=== PATIENT | female | born 1965 | race Caucasian/White ===

== ENCOUNTER → 2016-05-04 | Outpatient (CLI) | payer BC | LOC: RAD 09:00 | PROVIDERS: ATTEND Specialist | DX: R19.01 Right upper quadrant abdominal swelling, mass and lump (principal); K44.9 Diaphragmatic hernia without obstruction or gangrene | CPT/HCPCS: 74250 ==

== ENCOUNTER 2017-01-17 08:32 | Day surgery (SDC) | payer BC, OTHER ==
--- NOTE | 2017-01-12 11:18 | HISTORY AND PHYSICAL E ---
History and Physical NAME: YONATHAN AUGUST : 1965 AGE: 51Y ADMITTED: 01/17/2017 ROOM: CHIEF COMPLAINT: Patient admitted for colon screening. HISTORY: I saw the patient in 2014 for dysphagia. PAST SURGICAL HISTORY: 1. Hysterectomy. 2. Bilateral breast biopsy. ALLERGIES: Negative. SOCIAL HISTORY: . Does not smoke, she quit. She does not drink. FAMILY HISTORY: Father is alive with heart disease. Mom is alive. REVIEW OF SYSTEMS: RESPIRATORY: Asthma. COPD. She uses inhaler as needed. CARDIAC: Hypertension. ENDOCRINE: Negative. GASTROINTESTINAL: Reflux. Colon screening. ONCOLOGY/HEMATOLOGY: Negative. MUSCULOSKELETAL: Arthritis. PHYSICAL EXAMINATION: GENERAL: Pleasant, alert, oriented. In no acute distress. VITAL SIGNS: Blood pressure 110/70, pulse 80, respirations 18, temp is 98. HEAD, EYES, EARS, NOSE, THROAT: Normal. NECK: Supple. LUNGS: Clear. ABDOMEN: Soft. NEUROLOGIC: Negative. CONCLUSION: Colon screening. PLAN: Colonoscopy. Patient did have colon in 2014. It shows anemia. Patient does have history of colonoscopy in December 2014 showing polyps. Now patient for colon screening. The patient did have colonoscopy in 2014. It showed colon polyp, 4 mm polyp. These polyps were hyperplastic polyps. Sigmoid polypectomy. Upper scope shows food retained in the stomach consistent with gastroparesis. Patient's gastric emptying study was normal. DICTATING PHYSICIAN: SHABNAM HERNANDEZ M.D. [id number] Y#: [id number] ID: [id number] JOB#: [id number] ACCT: [id number] cc:ABENA SPEARS M.D., MAHMOUD M.D. >
[~2017-01-17 08:32] MED LIST: EPINEPHRINE INJ 1 MG/10 ML DISP.SYRIN ONE; FLUMAZENIL INJ 0.5 MG/5 ML VIAL ONE; GLUCAGON,HUMAN RECOMB 1 MG INJ ONE; GLYCOPYRROLATE INJ 0.4 MG/2 ML VIAL ONE; NALOXONE HCL INJ/PF 0.4 MG/1 ML SDV ONE
[2017-01-17] MEDS: MIDAZOLAM 2 MG/2 ML INJ ONE ×2 (09:44→09:53)
[2017-01-17] MEDS: FENTANYL CITRATE INJ/PF 100 MCG/2 ML AMPUL ONE ×3 (09:46→09:50)
[2017-01-17] MEDS ORDERED: ONDANSETRON HCL INJ/PF 4 MG/2 ML SDV ONE (10:35)
[2017-01-17 11:02] VITALS: BP 118/73
[2017-01-17 11:07] LABS: ABSOLUTE EOSINOPHILS # (AUTO) 0.2 10^3/uL (0.0-0.6); ABSOLUTE LYMPHOCYTES (AUTO) 1.8 10^3/uL (0.5-4.7); ABSOLUTE MONOCYTES (AUTO) 0.8 10^3/uL (0.1-1.4); BASOPHILS % (AUTO) 0.2 % (0-2); EOSINOPHILS % (AUTO) 1.9 % (0-6); HEMATOCRIT 36.1 % (36.0-47.0); HEMOGLOBIN 12.6 g/dL (12.0-15.5); HGB HCT DIFFERENCE 1.7; LYMPHOCYTES % (AUTO) 18.6 % (13-45); MEAN CORPUSCULAR HEMOGLOBIN 29.6 pg (27.0-33.4); MEAN CORPUSCULAR HGB CONC 34.8 g/dL (32.0-36.0); MEAN CORPUSCULAR VOLUME 85 fl (80-97); MONOCYTES % (AUTO) 7.9 % (3-13); RED BLOOD COUNT 4.24 10^6/uL (3.72-5.28); RED CELL DISTRIBUTION WIDTH 13.2 % (11.5-14.0); SEGMENTED NEUTROPHILS % (AUTO) 71.4 % (42-78); WHITE BLOOD COUNT 9.8 10^3/uL (4.0-10.5)
--- NOTE | 2017-01-17 13:47 | DISCHARGE SUMMARY E ---
Discharge Summary NAME: YONATHAN AUGUST : 1965 AGE: 51Y ADMITTED: 01/17/2017 DISCHARGED: 01/17/2017 SUMMARY: Patient is a 51-year-old female who underwent colon screening today that shows a 2 to 3 mm polyp in sigmoid, resected, and small anal polyp at the anal verge too close to the sphincter and the anal area. Consideration for surgical consultation and possible surgical resection of small anal verge polyp versus hemorrhoid, benign, no evidence of malignancy. DISCHARGE PLAN: Baseline CBC, soft diet, surgical consult in the next few weeks. DICTATING PHYSICIAN: SHABNAM HERNANDEZ M.D. [id number] PHY#: [id number] ID: [id number] JOB#: [id number] ACCT: [id number] cc:ABENA SPEARS M.D., MAHMOUD M.D. >
--- NOTE | 2017-01-17 13:48 | OPERATIVE REPORT E ---
Operative Report NAME: YONATHAN AUGUST : 1965 AGE: 51Y DATE OF SURGERY: 01/17/2017 ROOM: ADDENDUM: The patient is a 51-year-old female. Colon screening shows anal wart versus anal polyp versus hemorrhoids, sigmoid polyp. DISCHARGE PLAN: Soft diet. Awaiting biopsy and surgical consult. After surgical consult consider colonoscopy. Follow up after 1 to 2 years pending biopsy results. Consider follow-up colonoscopy in 3 years pending surgical consult in the next few weeks regarding anal wart versus polyp versus hemorrhoids. DICTATING PHYSICIAN: SHABNAM HERNANDEZ M.D. [id number] PHY#: [id number] ID: [id number] JOB#: [id number] ACCT: [id number] cc:SHABNAM HERNANDEZ M.D. >
--- NOTE | 2017-01-17 13:53 | OPERATIVE REPORT E ---
Operative Report NAME: YONATHAN AUGUST : 1965 AGE: 51Y DATE OF SURGERY: 01/17/2017 ROOM: PREOPERATIVE DIAGNOSIS: Colon screening. POSTOPERATIVE DIAGNOSES: A 2 mm anal polyp versus hemorrhoid and a 2 mm sigmoid polyp. PROCEDURE: Colonoscopy. SURGEON: SHABNAM HERNANDEZ M.D. ANESTHESIA: Versed 2 and fentanyl 50. TISSUE REMOVED OR ALTERED: Biopsy polyp sigmoid. PROCEDURE: Rectal exam shows 2 mm anal polyp versus hemorrhoids. Soft. On exam it is like 1-2 palpable anal polyp benign versus hemorrhoid. It is very close or in the anal verge which is very sensitive to resection and I am not sure if is not just a hemorrhoid. Consideration for surgical consult in the next few weeks regarding anal polyp versus hemorrhoids. Sigmoid shows 2 mm hyperplastic polyp removed by biopsy x2. Descending colon normal. Transverse colon normal. Ascending colon normal. Cecum normal. Scope withdrawn from cecum, ascending, transverse, descending sigmoid all the way to the rectum. CONCLUSION: A 2 mm polyp removed by biopsy in sigmoid. Small 2 mm anal polyp versus hemorrhoid. Reluctant to resect it because it is in the anal sphincter. It may be hemorrhoid versus benign polyp. On exam it is soft with no evidence of induration or malignancy. Benign looking 2 mm anal polyp versus hemorrhoid. Consideration surgical consult in the next few weeks regarding 2 mm anal polyp versus hemorrhoid. DICTATING PHYSICIAN: SHABNAM HERNANDEZ M.D. [id number] PHY#: [id number] ID: [id number] JOB#: [id number] ACCT: [id number] cc:ABENA SPEARS M.D., MAHMOUD M.D. >
== END 2017-01-17 11:10 | disposition home or self-care (01) ==
LOC: END 08:32
PROVIDERS: ATTEND Specialist
PROC: 0DBN8ZX Excision of Sigmoid Colon, Via Natural or Artificial Opening Endoscopic, Diagnostic (ICD-10-PCS; principal; 2017-01-17 09:00)
DX: Z12.11 Encounter for screening for malignant neoplasm of colon (principal); D12.5 Benign neoplasm of sigmoid colon; K62.0 Anal polyp; J44.9 Chronic obstructive pulmonary disease, unspecified; I10 Essential (primary) hypertension; K21.9 Gastro-esophageal reflux disease without esophagitis; M19.90 Unspecified osteoarthritis, unspecified site; Z79.51 Long term (current) use of inhaled steroids; Z87.891 Personal history of nicotine dependence
CPT/HCPCS: 45380; 36415; 85025; 88305 ×2; J2250; J3010; J1610; J2405; J0171; J2310; J3490

== ENCOUNTER 2017-01-23 12:52 | Emergency (ER) | payer BC, OTHER ==
--- NOTE | 2017-01-23 14:31 | ER Document Report ---
ED Fever - General Chief Complaint: Fever Stated Complaint: POSSIBLE HIGH FEVER Time Seen by Provider: 01/23/17 13:39 Notes: Patient is a 51-year-old female presents emergency department complaining of fever this morning as well as abdominal pain. States she woke up this morning feeling warm checked her temperature was 101-2 Tylenol and recheck to 30 minutes later and it was 103.9 so she took 2 more Tylenol. States they were the extra strength Tylenol of 500 mg tablets. Patient states that she had a colonoscopy last Sunday and since then has had mild abdominal pain since then. She admits that her last bowel movement was today. She states that her normal for her bowel movement schedule is that she is constipated and does not go every single day. Past medical history significant for hypertension, hyperlipidemia, GERD, hiatal hernia, fibromyalgia, degenerative disc disease, early onset dementia, prediabetes, neuropathy Past surgical history significant for colonoscopy 2, hysterectomy, cholecystectomy Social history significant for former tobacco user, denies any alcohol, drug use. States she lives with her . Primary care physician is Dr. Pederson TRAVEL OUTSIDE OF THE [place] IN LAST 30 DAYS: No - Related Data Allergies/Adverse Reactions: No Known Allergies Allergy (Verified 01/23/17 14:44) Past Medical History - Social History Smoking Status: Former Smoker Family History: Reviewed & Not Pertinent - Past Medical History Cardiac Medical History: Reports: Hx Hypertension Denies: Hx Coronary Artery Disease, Hx Heart Attack Pulmonary Medical History: Reports: Hx Asthma, Hx Bronchitis Denies: Hx COPD, Hx Pneumonia Neurological Medical History: Denies: Hx Cerebrovascular Accident, Hx Seizures Renal/ Medical History: Denies: Hx Peritoneal Dialysis Musculoskeltal Medical History: Reports Hx Arthritis Past Surgical History: Reports: Hx Hysterectomy - Immunizations Hx Diphtheria, Pertussis, Tetanus Vaccination: Yes Hx Pneumococcal Vaccination: 04/02/10 Review of Systems - Review of Systems Constitutional: See HPI EENT: No symptoms reported Cardiovascular: No symptoms reported Respiratory: No symptoms reported Gastrointestinal: Constipation. denies: Diarrhea, Nausea, Vomiting Genitourinary: No symptoms reported Physical Exam - Vital signs Vitals: Temp Pulse BP Pulse Ox 99.6 F 90 119/70 98 01/23/17 13:05 01/23/17 13:05 01/23/17 13:05 01/23/17 13:05 - Notes Notes: PHYSICAL EXAM GENERAL: Alert, interacts well. LUNGS: Clear to auscultation bilaterally, no wheezes, rales, or rhonchi. No respiratory distress. HEART: Regular rate and rhythm. No murmurs, gallops, or rubs. ABDOMEN: Soft, obese, nondistended, tenderness in the left lower quadrant. No guarding, rebound, or rigidity.. Bowel sounds present in all 4 quadrants. EXTREMITIES: Moves all 4 extremities spontaneously. No edema, radial and dorsalis pedis pulses 2/4 bilaterally. No cyanosis. NEUROLOGICAL: Alert and oriented x4. Normal speech. PSYCH: Normal affect, normal mood. SKIN: Warm, dry, normal turgor. No rashes or lesions noted. Course - Re-evaluation Re-evalutation: 01/23/17 15:50 Patient is a 51-year-old female is hemodynamically stable, no acute distress afebrile. Labs with mild elevation in white blood cell and mild left shift. No evidence of anemia. Repeat abdominal exam show diffuse left lower quadrant tenderness without rebound. KUB without any evidence of stool burden, free air. Will proceed with a CT the abdomen and pelvis with IV contrast. 01/23/17 17:34 No evidence of abscess, perforation, diverticulitis. Given patient has had left lower quadrant discomfort and fever and mild left shift will prophylactically treat with antibiotics for colitis and follow-up with primary care in a week. Patient agrees with plan. Discussed with her signs and symptoms indicating return to the emergency department. Patient agrees with plan. - Vital Signs Vital signs: Temp Pulse Resp BP Pulse Ox 97.8 F 70 15 98/60 L 96 01/23/17 17:50 01/23/17 17:50 01/23/17 17:50 01/23/17 17:56 01/23/17 17:50 - Laboratory Result Diagrams: 01/23/17 14:35 01/23/17 14:35 Laboratory results interpreted by me: 01/23/17 01/23/17 01/23/17 14:35 14:35 14:35 WBC 13.7 H Hgb 11.4 L Hct 32.6 L Seg Neutrophils % 82.0 H Absolute Neutrophils 11.2 H Potassium 3.3 L Glucose 130 H ALT 53 H Total Protein 6.1 L Urine Blood MODERATE H - Diagnostic Test Radiology reviewed: Image reviewed, Reports reviewed Discharge - Discharge Clinical Impression: Abdominal pain Qualifiers: Abdominal location: left lower quadrant Qualified Code(s): R10.32 - Left lower quadrant pain Condition: Good Disposition: HOME, SELF-CARE Instructions: Acetaminophen, Use of Izyd-Soe-Pbnbhdv Ibuprofen ([facility]) Additional Instructions: ABDOMINAL PAIN: There are many causes of abdominal pain. Pain can mean a serious problem requiring surgery (such as appendicitis). It can also be an innocent problem that goes away on its own (such as a viral infection). Often, time must pass to determine the cause of pain. The physician does not feel that hospitalization is necessary, at present. Things may change within the next 24 hours. Call the doctor or come back for re- examination if any problems occur, such as: (1) Pain that becomes more severe, steady, or becomes concentrated in one specific area. Also, pain that is more severe with movement or coughing. (2) Vomiting that persists or becomes more frequent. (3) Blood in the vomitus, urine, or bowel movements. Blood in the stool may have a tarry or black appearance. (4) Shaking chills or fever greater than 100 degrees F. (5) The abdomen becomes more distended or swollen. (6) Bowel movements cease. (7) Failure to improve as expected. NORMAL EXAM AND WORKUP: At this time, your examination and workup show no significant abnormality. No significant abnormal physical findings are noted. All laboratory, EKG, and imaging (x-ray, CT scans, ultrasound) studies that were ordered show no significant abnormality. Although your examination and all studies that were ordered showed no significant abnormal finding, there are no examinations and no studies that are 100% accurate. There is always the possibility that some abnormality could exist and not be detected with physical examination or within the limits and capabilities of laboratory and other studies. You should return or follow up as you were instructed on your visit today for further evaluation if your symptoms do not resolve. FOLLOW-UP CARE: If you have been referred to a physician for follow-up care, call the physician s office for an appointment as you were instructed or within the next two days. If you experience worsening or a significant change in your symptoms, notify the physician immediately or return to the Emergency Department at any time for re-evaluation. Prescriptions: Ciprofloxacin HCl [Cipro 500 mg Tablet] 500 mg PO BID #14 tablet Metronidazole 500 mg PO TID 7 Days tablet Referrals: AG PEDERSON DO [Primary Care Provider] - Follow up in 3-5 days
[2017-01-23 15:02] LABS: ABSOLUTE BASOPHILS # (AUTO) 0.1 10^3/uL (0.0-0.2); ABSOLUTE LYMPHOCYTES (AUTO) 1.8 10^3/uL (0.5-4.7); ABSOLUTE MONOCYTES (AUTO) 0.5 10^3/uL (0.1-1.4); ABSOLUTE NEUT (AUTO) 11.2 10^3/uL (1.7-8.2); BASOPHILS % (AUTO) 0.7 % (0-2); EOSINOPHILS % (AUTO) 0.2 % (0-6); HEMATOCRIT 32.6 % (36.0-47.0); HEMOGLOBIN 11.4 g/dL (12.0-15.5); HGB HCT DIFFERENCE 1.6; LYMPHOCYTES % (AUTO) 13.2 % (13-45); MEAN CORPUSCULAR HEMOGLOBIN 28.9 pg (27.0-33.4); MEAN CORPUSCULAR HGB CONC 34.9 g/dL (32.0-36.0); MEAN CORPUSCULAR VOLUME 83 fl (80-97); MONOCYTES % (AUTO) 3.9 % (3-13); RED BLOOD COUNT 3.94 10^6/uL (3.72-5.28); RED CELL DISTRIBUTION WIDTH 13.2 % (11.5-14.0); WHITE BLOOD COUNT 13.7 10^3/uL (4.0-10.5)
[2017-01-23 15:10] LABS: APPEARANCE,URINE CLEAR; BILIRUBIN,URINE NEGATIVE (NEGATIVE); GLUCOSE, URINE NEGATIVE (NEGATIVE); KETONES,URINE NEGATIVE (NEGATIVE); LEUKOCYTE ESTERASE,URINE NEGATIVE (NEGATIVE); NITRITE,URINE NEGATIVE (NEGATIVE); PROTEIN,URINE NEGATIVE (NEGATIVE); UROBILINOGEN,URINE NEGATIVE mg/dL (<2.0)
[2017-01-23 15:25] LABS: ALANINE AMINOTRANSFERASE 53 U/L (9-52); ALBUMIN 3.6 g/dL (3.5-5.0); ALKALINE PHOSPHATASE 108 U/L (38-126); ANION GAP 11 (5-19); ASPARTATE AMINO TRANSFERASE 32 U/L (14-36); BILIRUBIN,DIRECT 0.4 mg/dL (0.0-0.4); BILIRUBIN,TOTAL 0.4 mg/dL (0.2-1.3); BLOOD UREA NITROGEN 11 mg/dL (7-20); CALCIUM 8.7 mg/dL (8.4-10.2); CARBON DIOXIDE 28 mmol/L (22-30); CHLORIDE 103 mmol/L (98-107); CREATININE RESULT 0.82 mg/dL (0.52-1.25); GLUCOSE 130 mg/dL (75-110); POTASSIUM 3.3 mmol/L (3.6-5.0); SODIUM 142.2 mmol/L (137-145); TOTAL PROTEIN 6.1 g/dL (6.3-8.2)
--- NOTE | 2017-01-23 15:46 | RADIOLOGY REPORT (SQ) ---
EXAM DESCRIPTION: KUB/ABDOMEN (SINGLE VIEW) COMPLETED DATE/TIME: 01/23/2017 3:36 pm REASON FOR STUDY: fever abdominal pain COMPARISON: None. NUMBER OF VIEWS: One view. TECHNIQUE: Supine radiographic image of the abdomen acquired. LIMITATIONS: None. FINDINGS: BOWEL GAS PATTERN: Normal bowel gas pattern. No dilated loops. CALCIFICATIONS: No suspicious calcifications. SOFT TISSUES: No gross mass or suggestion of organomegaly. HARDWARE: None in the abdomen. BONES: No acute fracture. No worrisome bone lesions. OTHER: No other significant finding. IMPRESSION: NO RADIOGRAPHIC EVIDENCE FOR ACUTE ABDOMINAL DISEASE. TECHNICAL DOCUMENTATION: JOB ID: [id number] [employer] All Rights Reserved
--- NOTE | 2017-01-23 17:20 | RADIOLOGY REPORT (SQ) ---
EXAM DESCRIPTION: CT ABD/PELVIS WITH IV ONLY COMPLETED DATE/TIME: 01/23/2017 5:03 pm REASON FOR STUDY: LLQ pain, fever, s/p colonoscopy COMPARISON: CT chest 06/03/2014 Small bowel follow-through 05/04/2016 KUB 01/23/2017 TECHNIQUE: CT scan of the abdomen and pelvis performed using helical scanning technique with dynamic intravenous contrast injection. No oral contrast. Images reviewed with lung, soft tissue, and bone windows. Reconstructed coronal and sagittal MPR images reviewed. Delayed images for evaluation of the urinary system also acquired. All images stored on PACS. All CT scanners at this facility use dose modulation, iterative reconstruction, and/or weight based d osing when appropriate to reduce radiation dose to as low as reasonably achievable (ALARA). [facility]: Dose Right [facility]: CareDose [facility]: Dose Right [facility]: Teradose 4D [facility]: [employer]Now [employer] CONTRAST TYPE AND DOSE: contrast/concentration: Isovue 370.00 mg/ml; Total Contrast Delivered: 100.0 ml; Total Saline Delivered: 72.0 ml RENAL FUNCTION: Creatinine 0.82 RADIATION DOSE: Up-to-date CT equipment and radiation dose reduction techniques were employed. CTDIv ol: 17.0 - 20.0 mGy. DLP: 1967 mGy-cm.. LIMITATIONS: None. FINDINGS: LOWER CHEST: No significant findings. No nodules or infiltrates. LIVER: Normal size. No masses. No dilated ducts. SPLEEN: Normal size. No focal lesions. PANCREAS: No masses. No significant calcifications. No adjacent inflammation or peripancreatic fluid collections. Pancreatic duct not dilated. GALLBLADDER: Post cholecystectomy ADRENAL GLANDS: No significant masses or asymmetry. RIGHT KIDNEY AND URETER: No solid masses. No significant calcifications. No hydronephrosis or hyd roureter. LEFT KIDNEY AND URETER: No solid masses. No significant calcifications. No hydronephrosis or hydr oureter. AORTA AND VESSELS: No aneurysm. No dissection. Renal arteries, SMA, celiac without stenosis. RETROPERITONEUM: No retroperitoneal adenopathy, hemorrhage or masses. BOWEL AND PERITONEAL CAVITY: No masses or inflammatory changes. No free fluid or peritoneal masses. No evidence of bowel obstruction. APPENDIX: Normal. PELVIS: No mass. No free fluid. Normal bladder. Post hysterectomy ABDOMINAL WALL: No masses. No hernias. BONES: No significant or acute findings. OTHER: No other significant finding. IMPRESSION: NO SIGNIFICANT OR ACUTE FINDING IN THE ABDOMEN OR PELVIS ON CT SCAN WITH IV CONTRAST. TECHNICAL DOCUMENTATION: JOB ID: [id number] Quality ID # [id number]: Final reports with documentation of one or more dose reduction techniques (e.g., Au tomated exposure control, adjustment of the mA and/or kV according to patient size, use of iterative reconstruction technique) 2010 [employer]- All Rights Reserved
[2017-01-23] MEDS ORDERED: METRONIDAZOLE 500 MG TABLET PO ONE (17:33)
[2017-01-23] MEDS ORDERED: CIPROFLOXACIN HCL 500 MG TABLET PO ONE (17:33)
[2017-01-23 17:57] VITALS: BP 98/60
== END 2017-01-23 18:08 | disposition home or self-care (01) ==
LOC: ER 12:52
DX: K59.00 Constipation, unspecified (principal); R50.9 Fever, unspecified; R10.32 Left lower quadrant pain; D72.829 Elevated white blood cell count, unspecified; I10 Essential (primary) hypertension; J45.909 Unspecified asthma, uncomplicated; Z98.890 Other specified postprocedural states; Z90.49 Acquired absence of other specified parts of digestive tract; Z87.891 Personal history of nicotine dependence
CPT/HCPCS: 36415; 74000; 74177; 80053; 81001; 85025; 99284

== ENCOUNTER 2017-01-25 19:41 | Emergency (ER) | payer BC ==
[2017-01-25 20:53] LABS: APPEARANCE,URINE SLIGHTLY-CLOUDY; BILIRUBIN,URINE NEGATIVE (NEGATIVE); GLUCOSE, URINE NEGATIVE (NEGATIVE); KETONES,URINE NEGATIVE (NEGATIVE); LEUKOCYTE ESTERASE,URINE SMALL (NEGATIVE); NITRITE,URINE NEGATIVE (NEGATIVE); PROTEIN,URINE NEGATIVE (NEGATIVE); URINE SPECIFIC GRAVITY 1.018
[2017-01-25 21:46] VITALS: BP 116/70
[2017-01-25] MEDS ORDERED: CEPHALEXIN 500 MG CAPSULE PO ONE (23:08)
--- NOTE | 2017-01-25 23:12 | ER Document Report ---
ED General - General Chief Complaint: Urinary Problem Stated Complaint: BLOOD IN URINE Time Seen by Provider: 01/25/17 21:08 Notes: Patient is a 51-year-old female who presents with complaints of hematuria. Patient does have a clarify that she has not actually seen gross hematuria only dark urine. She has had these symptoms intermittently since she fell and was seen in the emergency department [address] scan of the abdomen pelvis was done at that time did not demonstrate any evidence of a renal hematoma or any other acute intra-abdominal injury. She does note intermittent right flank pain that is a dull, throbbing, aching pain. Nothing improves or worsens her symptoms. She has not seen a primary care doctor regarding today's concerns. Nothing is new or different about her symptoms today that prompted an emergency department visit. She has not had any fever or constitutional symptoms. No vomiting. TRAVEL OUTSIDE OF THE [place] IN LAST 30 DAYS: No - Related Data Allergies/Adverse Reactions: No Known Allergies Allergy (Verified 01/23/17 14:44) Past Medical History - General Information source: Patient - Social History Smoking Status: Never Smoker Chew tobacco use (# tins/day): No Frequency of alcohol use: None Drug Abuse: None Family History: Reviewed & Not Pertinent Patient has suicidal ideation: No Patient has homicidal ideation: No - Past Medical History Cardiac Medical History: Reports: Hx Hypertension Denies: Hx Coronary Artery Disease, Hx Heart Attack Pulmonary Medical History: Reports: Hx Asthma, Hx Bronchitis Denies: Hx COPD, Hx Pneumonia Neurological Medical History: Denies: Hx Cerebrovascular Accident, Hx Seizures Renal/ Medical History: Denies: Hx Peritoneal Dialysis Musculoskeltal Medical History: Reports Hx Arthritis Past Surgical History: Reports: Hx Hysterectomy - Immunizations Hx Diphtheria, Pertussis, Tetanus Vaccination: Yes Hx Pneumococcal Vaccination: 04/02/10 Review of Systems - Review of Systems Notes: Constitutional: Negative for fever. HENT: Negative for sore throat. Eyes: Negative for visual changes. Cardiovascular: Negative for chest pain. Respiratory: Negative for shortness of breath. Gastrointestinal: Negative for abdominal pain, vomiting or diarrhea. Genitourinary: Positive for dysuria and dark urine Musculoskeletal: Negative for back pain. Skin: Negative for rash. Neurological: Negative for headaches, weakness or numbness. 10 point ROS negative except as marked above and in HPI. Physical Exam - Vital signs Vitals: Temp Pulse Resp BP Pulse Ox 98.5 F 76 16 144/89 H 100 01/25/17 19:59 01/25/17 19:59 01/25/17 19:59 01/25/17 19:59 01/25/17 19:59 Interpretation: Normal Notes: PHYSICAL EXAMINATION: GENERAL: Well-appearing, well-nourished and in no acute distress. HEAD: Atraumatic, normocephalic. EYES: Pupils equal round and reactive to light, extraocular movements intact, sclera anicteric, conjunctiva are normal. ENT: nares patent, oropharynx clear without exudates. Moist mucous membranes. NECK: Normal range of motion, supple without lymphadenopathy LUNGS: Breath sounds clear to auscultation bilaterally and equal. No wheezes rales or rhonchi. HEART: Regular rate and rhythm without murmurs ABDOMEN: Soft, nontender, normoactive bowel sounds. No guarding, no rebound. No masses appreciated. EXTREMITIES: Normal range of motion, no pitting or edema. No cyanosis. NEUROLOGICAL: No focal neurological deficits. Moves all extremities spontaneously and on command. PSYCH: Normal mood, normal affect. SKIN: Warm, Dry, normal turgor, no rashes or lesions noted. Course - Re-evaluation Re-evalutation: 01/25/17 23:08 Patient presents with symptoms consistent with an acute cystitis. Vitals wnl. No history of fever, or constitution symptoms to suggest ascending infection at this time. Patient is well in appearance, tolerating oral intake without difficulty. Patient did have CT scan of her abdomen pelvis done after the fall which did not demonstrate any evidence of a renal hematoma. No focal abdominal tenderness to suggest acute appendicitis, biliary pathology, acute pancreatitis , tubo-ovarian abscesses, or pelvic inflammatory disease. Patient will be started on antibiotics at this time. A culture has been sent. At this time will discharge with return precautions and follow-up recommendations. Verbal discharge instructions given a the bedside and opportunity for questions given. Medication warnings reviewed. Patient is in agreement with this plan and has verbalized understanding of return precautions and the need for primary care follow-up in the next 24-72 hours. 01/26/17 02:52 - Vital Signs Vital signs: Temp Pulse Resp BP Pulse Ox 98.5 F 76 18 116/70 98 01/25/17 19:59 01/25/17 19:59 01/25/17 21:28 01/25/17 21:28 01/25/17 21:28 - Laboratory Laboratory results interpreted by me: 01/25/17 20:35 Urine Blood SMALL H Urine Urobilinogen 2.0 H Ur Leukocyte Esterase SMALL H Discharge - Discharge Clinical Impression: Hematuria Qualifiers: Hematuria type: idiopathic Glomerular morphologic changes: unspecified glomerular morphologic changes Qualified Code(s): N02.9 - Recurrent and persistent hematuria with unspecified morphologic changes UTI (urinary tract infection) Qualifiers: Urinary tract infection type: acute cystitis Hematuria presence: with hematuria Qualified Code(s): N30.01 - Acute cystitis with hematuria Condition: Good Disposition: HOME, SELF-CARE Additional Instructions: Your urine shows findings consistent with a urinary tract infection. Please take all the antibiotics as directed even if your symptoms have improved. Please follow-up with your primary care physician as needed. Return to emergency room if you develop fever >101F, persistent vomiting, become lethargic , have severe pain in your sides, or any other symptoms that are concerning to you. Continue the cephalexin that was prescribed today and discontinue the ciprofloxacin that you are already taking. Please follow-up with a urologist if your hematuria does not resolve after a course of antibiotics. Prescriptions: Cephalexin Monohydrate [Keflex 500 mg Capsule] 500 mg PO Q6H 5 Days capsule Referrals: AG JOHNSON DO [Primary Care Provider] - Follow up as needed
== END 2017-01-25 23:20 | disposition home or self-care (01) ==
LOC: ER 19:41
DX: N30.01 Acute cystitis with hematuria (principal); I10 Essential (primary) hypertension; J45.909 Unspecified asthma, uncomplicated; Z90.710 Acquired absence of both cervix and uterus
CPT/HCPCS: 36415; 81001; 87086; 99283

== ENCOUNTER 2017-01-30 02:12 | Emergency (ER) | payer SELFPAY ==
--- NOTE | 2017-01-30 04:13 | ER Document Report ---
ED GI Bleed / Rectal Pain - General Chief Complaint: Bloody Stools Stated Complaint: FEVER/BLOOD IN STOOL Time Seen by Provider: 01/30/17 03:57 Mode of Arrival: Ambulatory Information source: Patient Notes: Patient presents complaining of blood in her stool for the past 3 days. Patient did have a colonoscopy last week. Patient reports fever at home that was 100.1. Patient does report diarrhea 3 episodes for the past 3 days. Patient denies any nausea or vomiting. Patient denies any urinary symptoms. Patient did see her primary doctor who advised her that she had any continued pain or fever she should come to the ER for evaluation. Patient has not followed back up with her half sole fitter since having her colonoscopy performed on 01/17/2017 TRAVEL OUTSIDE OF THE [place] IN LAST 30 DAYS: No - HPI Patient complains to provider of: Bright red bld from rect. Onset: Other - 3 days Timing/Duration: Persistent Quality of pain: Achy Pain Level: 3 Emesis description: Bright red blood Rectal bleeding: Bloody diarrhea Associated symptoms: denies: Back pain, Abdominal pain, Fainting/dizzy/ lightheade Exacerbated by: Denies Relieved by: Denies Similar symptoms previously: Yes Recently seen / treated by doctor: Yes - Related Data Allergies/Adverse Reactions: No Known Allergies Allergy (Verified 01/23/17 14:44) Past Medical History - General Information source: Patient - Social History Smoking Status: Never Smoker Frequency of alcohol use: None Drug Abuse: None Occupation: None Family History: Reviewed & Not Pertinent Patient has suicidal ideation: No Patient has homicidal ideation: No - Past Medical History Cardiac Medical History: Reports: Hx Hypertension Denies: Hx Coronary Artery Disease, Hx Heart Attack Pulmonary Medical History: Reports: Hx Asthma, Hx Bronchitis Denies: Hx COPD, Hx Pneumonia Neurological Medical History: Reports: Other - Early stage dementia. Denies: Hx Cerebrovascular Accident, Hx Seizures Renal/ Medical History: Denies: Hx Peritoneal Dialysis Musculoskeltal Medical History: Reports Hx Arthritis, Reports Hx Fibromyalgia Past Surgical History: Reports: Hx Hysterectomy - Immunizations Hx Diphtheria, Pertussis, Tetanus Vaccination: Yes Hx Pneumococcal Vaccination: 04/02/10 Review of Systems - Review of Systems Constitutional: Fever. denies: Recent illness EENT: No symptoms reported Cardiovascular: No symptoms reported. denies: Chest pain, Dizziness Respiratory: No symptoms reported. denies: Cough, Short of breath Gastrointestinal: Diarrhea, Rectal bleeding. denies: Vomiting Genitourinary: No symptoms reported. denies: Dysuria, Flank pain Female Genitourinary: No symptoms reported Musculoskeletal: Back pain - Chronic low back pain Skin: No symptoms reported Hematologic/Lymphatic: No symptoms reported Neurological/Psychological: No symptoms reported Physical Exam - Vital signs Vitals: Temp Pulse Resp BP Pulse Ox 99.1 F 76 18 161/87 H 100 01/30/17 02:40 01/30/17 02:40 01/30/17 02:40 01/30/17 02:40 01/30/17 02:40 - General General appearance: Appears well, Alert In distress: None - HEENT Head: Normocephalic Eyes: Normal Nasal: Normal Mouth/Lips: Normal Mucous membranes: Normal Neck: Normal, Supple. No: Lymphadenopathy - Respiratory Respiratory status: No respiratory distress Chest status: Nontender Breath sounds: Normal. No: Rales, Rhonchi, Stridor, Wheezing Chest palpation: Normal - Cardiovascular Rhythm: Regular Heart sounds: S1 appreciated, S2 appreciated Murmur: No - Abdominal Inspection: Obese Distension: No distension Bowel sounds: Normal Tenderness: Tender - LLQ, umbilical Organomegaly: No organomegaly - Back Back: Normal, Nontender. No: CVA tenderness - Extremities General upper extremity: Normal inspection, Normal ROM General lower extremity: Normal inspection, Normal ROM - Neurological Neuro grossly intact: Yes Cognition: Normal [place] Coma Scale Eye Opening: Spontaneous [place] Coma Scale Verbal: Oriented [place] Coma Scale Motor: Obeys Commands [place] Coma Scale Total: 15 - Psychological Associated symptoms: Normal affect, Normal mood - Skin Skin Temperature: Warm Skin Moisture: Dry Skin Color: Normal Course - Re-evaluation Re-evalutation: 01/30/17 07:[address] Bowman regarding patient presentation. Recommends outpatient follow-up with her primary doctor as well as half sole fitter. Patient with negative Hemoccult. Patient with mild hematuria. Patient is still taking antibiotics to treat her urinary tract infection. Patient without abdominal tenderness at this time. Patient without any diarrhea during ER stay. Discussed worsening symptoms that patient should return immediately for. - Vital Signs Vital signs: Temp Pulse Resp BP Pulse Ox 99.1 F 76 18 161/87 H 100 01/30/17 02:40 01/30/17 02:40 01/30/17 02:40 01/30/17 02:40 01/30/17 02:40 - Laboratory Result Diagrams: 01/30/17 06:29 01/30/17 06:29 Laboratory results interpreted by me: 01/30/17 01/30/17 04:15 06:29 Hgb 11.5 L Hct 32.7 L Urine Blood MODERATE H Labs- Entire Visit 01/30/17 01/30/17 01/30/17 04:11 04:15 06:29 WBC 5.7 RBC 3.94 Hgb 11.5 L Hct 32.7 L MCV 83 MCH 29.2 MCHC 35.2 RDW 13.2 Plt Count 274 Seg Neutrophils % 67.9 Lymphocytes % 23.7 Monocytes % 6.4 Eosinophils % 1.6 Basophils % 0.4 Absolute Neutrophils 3.8 Absolute Lymphocytes 1.3 Absolute Monocytes 0.4 Absolute Eosinophils 0.1 Absolute Basophils 0.0 Sodium Potassium Chloride Carbon Dioxide Anion Gap BUN Creatinine Est GFR ( Amer) Est GFR (Non-Af Amer) Glucose Calcium Total Bilirubin Direct Bilirubin Indirect Bilirubin Neonat Total Bilirubin AST ALT Alkaline Phosphatase Total Protein Albumin Lipase Urine Color COLORLESS Urine Appearance CLEAR Urine pH 6.0 Ur Specific [place] 1.003 Urine Protein NEGATIVE Urine Glucose (UA) NEGATIVE Urine Ketones NEGATIVE Urine Blood MODERATE H Urine Nitrite NEGATIVE Urine Bilirubin NEGATIVE Urine Urobilinogen NEGATIVE Ur Leukocyte Esterase NEGATIVE Urine WBC (Auto) 0 Urine RBC (Auto) 1 Squamous Epi Cells Auto 1 Urine Mucus (Auto) RARE Urine Ascorbic Acid NEGATIVE Stool Occult Blood NEGATIVE 01/30/17 06:29 WBC RBC Hgb Hct MCV MCH MCHC RDW Plt Count Seg Neutrophils % Lymphocytes % Monocytes % Eosinophils % Basophils % Absolute Neutrophils Absolute Lymphocytes Absolute Monocytes Absolute Eosinophils Absolute Basophils Sodium 142.8 Potassium 3.9 Chloride 107 Carbon Dioxide 26 Anion Gap 10 BUN 8 Creatinine 0.85 Est GFR ( Amer) > 60 Est GFR (Non-Af Amer) > 60 Glucose 100 Calcium 9.5 Total Bilirubin 0.5 Direct Bilirubin 0.4 Indirect Bilirubin Not Reportable Neonat Total Bilirubin Not Reportable AST 25 ALT 49 Alkaline Phosphatase 96 Total Protein 6.4 Albumin 3.8 Lipase 123.2 Urine Color Urine Appearance Urine pH Ur Specific [place] Urine Protein Urine Glucose (UA) Urine Ketones Urine Blood Urine Nitrite Urine Bilirubin Urine Urobilinogen Ur Leukocyte Esterase Urine WBC (Auto) Urine RBC (Auto) Squamous Epi Cells Auto Urine Mucus (Auto) Urine Ascorbic Acid Stool Occult Blood - Diagnostic Test Radiology reviewed: Reports reviewed - Reviewed patient's previous CT scan performed earlier this week. Discharge - Discharge Clinical Impression: Hx of essential hypertension Hematuria Qualifiers: Hematuria type: unspecified type Qualified Code(s): R31.9 - Hematuria, unspecified Diarrhea Qualifiers: Diarrhea type: unspecified type Qualified Code(s): R19.7 - Diarrhea, unspecified Condition: Stable Disposition: HOME, SELF-CARE Instructions: Hematuria ([facility]), Diarrhea, Nonspecific ([facility]) Additional Instructions: Follow-up with your half sole fitter for recheck, call their office today for an appointment Return immediately for any new or worsening symptoms Followup with your primary care provider, call tomorrow to make a followup appointment Continue to take your antibiotic for your urinary tract infection. Forms: Elevated Blood Pressure Referrals: SHABNAM HERNANDEZ MD [EMERITUS] - Follow up as needed AG JOHNSON DO [NO LOCAL MD] - Follow up as needed
[2017-01-30 05:43] LABS: APPEARANCE,URINE CLEAR; BILIRUBIN,URINE NEGATIVE (NEGATIVE); GLUCOSE, URINE NEGATIVE (NEGATIVE); KETONES,URINE NEGATIVE (NEGATIVE); LEUKOCYTE ESTERASE,URINE NEGATIVE (NEGATIVE); NITRITE,URINE NEGATIVE (NEGATIVE); PROTEIN,URINE NEGATIVE (NEGATIVE); URINE SPECIFIC GRAVITY 1.003; UROBILINOGEN,URINE NEGATIVE mg/dL (<2.0)
[2017-01-30 07:02] LABS: ABSOLUTE EOSINOPHILS # (AUTO) 0.1 10^3/uL (0.0-0.6); ABSOLUTE LYMPHOCYTES (AUTO) 1.3 10^3/uL (0.5-4.7); ABSOLUTE MONOCYTES (AUTO) 0.4 10^3/uL (0.1-1.4); ABSOLUTE NEUT (AUTO) 3.8 10^3/uL (1.7-8.2); BASOPHILS % (AUTO) 0.4 % (0-2); EOSINOPHILS % (AUTO) 1.6 % (0-6); HEMATOCRIT 32.7 % (36.0-47.0); HEMOGLOBIN 11.5 g/dL (12.0-15.5); HGB HCT DIFFERENCE 1.8; LYMPHOCYTES % (AUTO) 23.7 % (13-45); MEAN CORPUSCULAR HEMOGLOBIN 29.2 pg (27.0-33.4); MEAN CORPUSCULAR HGB CONC 35.2 g/dL (32.0-36.0); MEAN CORPUSCULAR VOLUME 83 fl (80-97); MONOCYTES % (AUTO) 6.4 % (3-13); RED BLOOD COUNT 3.94 10^6/uL (3.72-5.28); RED CELL DISTRIBUTION WIDTH 13.2 % (11.5-14.0); SEGMENTED NEUTROPHILS % (AUTO) 67.9 % (42-78); WHITE BLOOD COUNT 5.7 10^3/uL (4.0-10.5)
[2017-01-30 07:13] LABS: ALANINE AMINOTRANSFERASE 49 U/L (9-52); ALBUMIN 3.8 g/dL (3.5-5.0); ALKALINE PHOSPHATASE 96 U/L (38-126); ANION GAP 10 (5-19); ASPARTATE AMINO TRANSFERASE 25 U/L (14-36); BILIRUBIN,DIRECT 0.4 mg/dL (0.0-0.4); BILIRUBIN,TOTAL 0.5 mg/dL (0.2-1.3); BLOOD UREA NITROGEN 8 mg/dL (7-20); CALCIUM 9.5 mg/dL (8.4-10.2); CARBON DIOXIDE 26 mmol/L (22-30); CHLORIDE 107 mmol/L (98-107); CREATININE RESULT 0.85 mg/dL (0.52-1.25); GLUCOSE 100 mg/dL (75-110); LIPASE 123.2 U/L (23-300); POTASSIUM 3.9 mmol/L (3.6-5.0); SODIUM 142.8 mmol/L (137-145); TOTAL PROTEIN 6.4 g/dL (6.3-8.2)
[2017-01-30 08:19] VITALS: BP 140/76
== END 2017-01-30 08:10 | disposition home or self-care (01) ==
LOC: ER 02:12
DX: R19.7 Diarrhea, unspecified (principal); R31.9 Hematuria, unspecified; R50.9 Fever, unspecified; I10 Essential (primary) hypertension; Z90.710 Acquired absence of both cervix and uterus
CPT/HCPCS: 36415; 80053; 81001; 82272; 83690; 85025; 87040; 99283

== ENCOUNTER 2018-07-21 21:47 | Emergency (ER) | payer SELFPAY | END 2018-07-21 22:38 | disposition left against medical advice (07) | LOC: ER 21:47 | DX: Z53.21 Procedure and treatment not carried out due to patient leaving prior to being seen by health care provider (principal) ==

== ENCOUNTER 2018-07-22 16:32 | Emergency (ER) | payer BC ==
[2018-07-22] MEDS ORDERED: KETOROLAC TROMETHAMINE INJ/PF 30 MG/1 ML SDV IV ONE (17:01)
--- NOTE | 2018-07-22 17:03 | ER Document Report ---
ED Medical Screen (RME) - General Chief Complaint: Abscess Stated Complaint: BITE ON FINGER Time Seen by Provider: 07/22/18 16:56 Mode of Arrival: Ambulatory Information source: Patient TRAVEL OUTSIDE OF THE [place] IN LAST 30 DAYS: No - HPI Patient complains to provider of: Abscess Notes: 07/22/18 17:01 Patient here with complaints of pain, swelling and possible abscess to the left index finger. She states that several days ago she noticed a small bump to the dorsal aspect of the left index finger on the proximal phalanx. She states that she scratched off the top of it and since that time she has developed worsening swelling, redness and pain. She now has redness to the hand as well as a red streak going up the forearm with pain up to this area. No fever. She states that occasionally she gets some drainage from the area. She was seen in her primary care's office earlier today, she was given a dose of Rocephin and was sent to the emergency department for evaluation. Exam Patient is nontoxic-appearing with stable vitals. No distress. Patient noted to have a purple-colored bolus type lesion to the dorsal aspect of the left index finger at the proximal phalanx with redness to the dorsum of the hand and a lymphangitic streak up the left forearm. Normal pulse and sensation. Normal cap refill and sensation distally. Plan CBC, CMP, blood cultures, sed rate, CRP, x-ray, saline lock, Toradol. An initial examination was made on the patient as part of the triage process, and it was determined a more comprehensive evaluation was necessary. Initial labs were ordered and patient was transferred to another provider in the ED who assumed care and finished evaluation and plan. - Related Data Allergies/Adverse Reactions: No Known Allergies Allergy (Verified 07/22/18 16:33) Past Medical History - Past Medical History Cardiac Medical History: Reports: Hx Hypertension Denies: Hx Coronary Artery Disease, Hx Heart Attack Pulmonary Medical History: Reports: Hx Asthma, Hx Bronchitis Denies: Hx COPD, Hx Pneumonia Neurological Medical History: Denies: Hx Cerebrovascular Accident, Hx Seizures Renal/ Medical History: Denies: Hx Peritoneal Dialysis Musculoskeltal Medical History: Reports Hx Arthritis, Reports Hx Fibromyalgia Past Surgical History: Reports: Hx Cholecystectomy, Hx Hysterectomy - Immunizations Hx Diphtheria, Pertussis, Tetanus Vaccination: Yes Physical Exam - Vital signs Vitals: Temp Pulse Resp BP Pulse Ox 97.8 F 79 16 137/83 H 99 07/22/18 16:36 07/22/18 16:36 07/22/18 16:36 07/22/18 16:36 07/22/18 16:36 Course - Vital Signs Vital signs: Temp Pulse Resp BP Pulse Ox 97.8 F 79 16 137/83 H 99 07/22/18 16:36 07/22/18 16:36 07/22/18 16:36 07/22/18 16:36 07/22/18 16:36
[2018-07-22 17:46] LABS: ABSOLUTE BASOPHILS # (AUTO) 0.1 10^3/uL (0.0-0.2); ABSOLUTE EOSINOPHILS # (AUTO) 0.1 10^3/uL (0.0-0.6); ABSOLUTE LYMPHOCYTES (AUTO) 1.7 10^3/uL (0.5-4.7); ABSOLUTE MONOCYTES (AUTO) 0.5 10^3/uL (0.1-1.4); ABSOLUTE NEUT (AUTO) 10.3 10^3/uL (1.7-8.2); BASOPHILS % (AUTO) 0.6 % (0-2); EOSINOPHILS % (AUTO) 1.1 % (0-6); HEMOGLOBIN 13.1 g/dL (12.0-15.5); LYMPHOCYTES % (AUTO) 13.6 % (13-45); MEAN CORPUSCULAR HGB CONC 34.6 g/dL (32.0-36.0); MEAN CORPUSCULAR VOLUME 84 fl (80-97); PLATELET COUNT 306 10^3/uL (150-450); RED BLOOD COUNT 4.53 10^6/uL (3.72-5.28); RED CELL DISTRIBUTION WIDTH 13.4 % (11.5-14.0); SEGMENTED NEUTROPHILS % (AUTO) 80.7 % (42-78); TOTAL CELLS COUNTED % (AUTO) 100 %; WHITE BLOOD COUNT 12.8 10^3/uL (4.0-10.5)
[2018-07-22 18:07] LABS: ALANINE AMINOTRANSFERASE 63 U/L (9-52); ALKALINE PHOSPHATASE 146 U/L (38-126); ANION GAP 11 (5-19); ASPARTATE AMINO TRANSFERASE 49 U/L (14-36); BILIRUBIN,DIRECT 0.5 mg/dL (0.0-0.4); BILIRUBIN,TOTAL 0.6 mg/dL (0.2-1.3); BLOOD UREA NITROGEN 11 mg/dL (7-20); C-REACTIVE PROTEIN 83.7 mg/L (<10.0); CALCIUM 9.1 mg/dL (8.4-10.2); CARBON DIOXIDE 32 mmol/L (22-30); CHLORIDE 98 mmol/L (98-107); GLUCOSE 146 mg/dL (75-110); POTASSIUM 3.6 mmol/L (3.6-5.0); SODIUM 140.7 mmol/L (137-145); TOTAL PROTEIN 7.6 g/dL (6.3-8.2)
[2018-07-22 18:27] LABS: ERYTHROCYTE SEDIMENTATION RATE 45 mm/hr (0-30)
--- NOTE | 2018-07-22 19:04 | RADIOLOGY REPORT (SQ) ---
EXAM DESCRIPTION: HAND LEFT 3 VIEWS COMPLETED DATE/TIME: 07/22/2018 5:14 pm REASON FOR STUDY: abscess, cellulitis left index finger COMPARISON: None. EXAM PARAMETERS: NUMBER OF VIEWS: Three views. TECHNIQUE: AP, lateral and oblique radiographic images acquired of the left hand. LIMITATIONS: None. FINDINGS: MINERALIZATION: Normal. BONES: No acute fracture or dislocation. No worrisome bone lesions. JOINTS: No effusion. SOFT TISSUES: Mild 2nd digit soft tissue swelling. No radiopaque foreign body. OTHER: No other significant finding. IMPRESSION: NO FRACTURE.Mild 2nd digit soft tissue swelling. No radiopaque foreign body. TECHNICAL DOCUMENTATION: JOB ID: [id number] [place]-72 2010 [employer]- All Rights Reserved Reading location - IP/workstation name: [email or web address]
[2018-07-22] MEDS ORDERED: CEPHALEXIN 500 MG CAPSULE PO ONE (21:52)
[2018-07-22] MEDS ORDERED: SULFAMETHOXAZOLE/TRIMETHOPRIM 800-160 MG TABLET PO ONE (21:52)
--- NOTE | 2018-07-22 21:56 | ER Document Report ---
ED General - General Chief Complaint: Abscess Stated Complaint: BITE ON FINGER Time Seen by Provider: 07/22/18 16:56 Primary Care Provider: AG JOHNSON DO [Primary Care Provider] - Follow up as needed RAUL MEAD DO [ACTIVE STAFF] - Follow up tomorrow Mode of Arrival: Ambulatory Notes: Patient is a 53-year-old female with a past medical history of essential hypertension, presents complaining of 3 days of progressively worsening swelling and pain to the dorsum of her left index finger. States that the area started as something like a bite or scratch and has gotten progressively more swollen and painful since that time. She now reports a severe, throbbing, constant pain to the area that has worsened since onset. Worsened by movement of the finger touching the area. Nothing improves the discomfort. No history of similar symptoms in the past. Denies fever or constitutional symptoms. Has not seen her primary care physician regarding today's concerns. Denies any limited range of motion of the digit although does report that it does cause pain to move the finger. She has had some purulent expression from the area with pushing. TRAVEL OUTSIDE OF THE [place] IN LAST 30 DAYS: No - Related Data Allergies/Adverse Reactions: No Known Allergies Allergy (Verified 07/22/18 16:33) Past Medical History - General Information source: Patient - Social History Smoking Status: Former Smoker Chew tobacco use (# tins/day): No Frequency of alcohol use: None Drug Abuse: None Lives with: Spouse/Significant other Family History: Reviewed & Not Pertinent Patient has suicidal ideation: No Patient has homicidal ideation: No - Past Medical History Cardiac Medical History: Reports: Hx Hypertension Denies: Hx Coronary Artery Disease, Hx Heart Attack Pulmonary Medical History: Reports: Hx Asthma, Hx Bronchitis Denies: Hx COPD, Hx Pneumonia Neurological Medical History: Denies: Hx Cerebrovascular Accident, Hx Seizures Renal/ Medical History: Denies: Hx Peritoneal Dialysis GI Medical History: Reports: Hx Gastroesophageal Reflux Disease Musculoskeletal Medical History: Reports Hx Arthritis, Reports Hx Fibromyalgia Past Surgical History: Reports: Hx Cholecystectomy, Hx Hysterectomy, Hx Tubal Ligation - Immunizations Hx Diphtheria, Pertussis, Tetanus Vaccination: Yes Hx Pneumococcal Vaccination: 04/02/10 Review of Systems - Review of Systems Notes: Constitutional: Negative for fever. HENT: Negative for sore throat. Eyes: Negative for visual changes. Cardiovascular: Negative for chest pain. Respiratory: Negative for shortness of breath. Gastrointestinal: Negative for abdominal pain, vomiting or diarrhea. Genitourinary: Negative for dysuria. Musculoskeletal: Negative for back pain. Skin: Positive for left index finger abscess, cellulitis of left hand Neurological: Negative for headaches, weakness or numbness. 10 point ROS negative except as marked above and in HPI. Physical Exam - Vital signs Vitals: Temp Pulse Resp BP Pulse Ox 97.8 F 79 16 137/83 H 99 07/22/18 16:36 07/22/18 16:36 07/22/18 16:36 07/22/18 16:36 07/22/18 16:36 Interpretation: Normal Notes: PHYSICAL EXAMINATION: GENERAL: Appears mildly uncomfortable but in no overt distress HEAD: Atraumatic, normocephalic. EYES: Pupils equal round and reactive to light, extraocular movements intact, sclera anicteric, conjunctiva are normal. ENT: nares patent, oropharynx clear without exudates. Moderately dry mucous membranes. NECK: Normal range of motion, supple without lymphadenopathy LUNGS: Breath sounds clear to auscultation bilaterally and equal. No wheezes rales or rhonchi. HEART: Regular rate and rhythm without murmurs, capillary refill less than 1 second in all digits of the left hand ABDOMEN: Soft, nontender, normoactive bowel sounds. No guarding, no rebound. No masses appreciated. EXTREMITIES: Full flexion and extension of the DIP, PIP and MCP of the left index finger including against resistance. NEUROLOGICAL: No focal neurological deficits. Moves all extremities spontaneously and on command. PSYCH: Normal mood, normal affect. SKIN: Warm, Dry, normal turgor, there is a cellulitis over the dorsal distal aspect of the left index finger with erythema extending over the proximal one third of the dorsum of the hand. Course - Re-evaluation Re-evalutation: 07/22/18 21:55 Patient presents with an abscess over the dorsum at the base of her left index finger with surrounding cellulitis and the dorsum of the hand. She is able to flex and extend the finger at the DIP, PIP and MCP although with some pain on full extension. This includes against resistance. No evidence of flexor tenosy novitis. No fever or constitutional symptoms. Labs obtained in triage consistent with infection. Area was incised and drained, irrigated, patient maintained range of motion after incision and drainage over the affected area. Patient has been started on trimethoprim sulfamethoxazole as well as cephalexin. I have asked her to follow-up with her hand surgeon Dr. Mead tomorrow. At this time will discharge with return precautions and follow-up recommendations. Verbal discharge instructions given a the bedside and opportunity for questions given. Medication warnings reviewed. Patient is in agreement with this plan and has verbalized understanding of return precautions and the need for hand follow- up within the next 24-48 hours maximally. - Vital Signs Vital signs: Temp Pulse Resp BP Pulse Ox 97.9 F 76 16 148/80 H 100 07/22/18 22:18 07/22/18 22:18 07/22/18 22:18 07/22/18 22:18 07/22/18 22:18 - Laboratory Result Diagrams: 07/22/18 17:25 07/22/18 17:25 Laboratory results interpreted by me: 07/22/18 07/22/18 17:25 17:25 WBC 12.8 H Seg Neutrophils % 80.7 H Absolute Neutrophils 10.3 H ESR 45 H Carbon Dioxide 32 H Glucose 146 H Direct Bilirubin 0.5 H AST 49 H ALT 63 H Alkaline Phosphatase 146 H C-Reactive Protein 83.7 H - Diagnostic Test Radiology reviewed: Image reviewed, Reports reviewed Radiology results interpreted by me: 07/22/18 21:56 Left hand x-ray: No acute fracture or retained foreign body Procedures - Incision and Drainage Left 2nd digit Type: Simple Anesthetic type: 1% Lidocaine mL's of anesthetic: 2 Blade size: 11 I&D procedure: Betadine prep applied Incision Method: Incision made by scalpel Amount/type of drainage: 3 cc of purulent drainage Discharge - Discharge Clinical Impression: Abscess of left index finger, Cellulitis of left hand Condition: Good Disposition: HOME, SELF-CARE Additional Instructions: You were seen for an abscess that required drainage. Please clean this area with soap and water twice daily and apply a topical antibiotic. Dress the area after each cleaning. Please return if you develop fever, vomiting, the pain at the site worsens, you notice spreading redness from the area, or you have any other symptoms that are concerning to you. Please also return if you become unable to fully range the finger. Take all antibiotics as prescribed. You need to follow-up with our hand surgeon tomorrow or as soon as possible. Prescriptions: Cephalexin Monohydrate [Keflex 500 mg Capsule] 500 mg PO Q6H 7 Days capsule Sulfamethoxazole/Trimethoprim [Bactrim Ds Tablet] 2 tab PO BID #28 tablet Referrals: AG JOHNSON DO [Primary Care Provider] - Follow up as needed RAUL MEAD DO [ACTIVE STAFF] - Follow up tomorrow
[2018-07-22] MEDS ORDERED: HYDROCODONE/ACETAMINOPHEN 5-325 MG (6 TAB/ER DISP) PO PRN (21:58)
[2018-07-22 22:25] VITALS: BP 148/80
== END 2018-07-22 22:20 | disposition home or self-care (01) ==
LOC: ER 16:32
DX: L02.512 Cutaneous abscess of left hand (principal); L03.114 Cellulitis of left upper limb; L03.012 Cellulitis of left finger; I10 Essential (primary) hypertension; Z87.891 Personal history of nicotine dependence; J45.909 Unspecified asthma, uncomplicated
CPT/HCPCS: 99283; 36415; 87040; 85025; 85652; 86140; 80053; 73130; 26010; J1885

== ENCOUNTER 2019-02-19 08:35 | Day surgery (SDC) | payer BC ==
--- NOTE | 2019-02-12 11:09 | EKG REPORT ---
SEVERITY:- ABNORMAL ECG - SINUS RHYTHM NONSPECIFIC INTRAVENTRICULAR CONDUCTION DELAY : Confirmed by: La Ruiz MD 12-Feb-2019 11:08:20
[2019-02-12 11:13] LABS: HEMATOCRIT 35.6 % (36.0-47.0); HEMOGLOBIN 12.3 g/dL (12.0-15.5); MEAN CORPUSCULAR HEMOGLOBIN 28.4 pg (27.0-33.4); MEAN CORPUSCULAR HGB CONC 34.7 g/dL (32.0-36.0); MEAN CORPUSCULAR VOLUME 82 fl (80-97); PLATELET COUNT 298 10^3/uL (150-450); RED BLOOD COUNT 4.34 10^6/uL (3.72-5.28); RED CELL DISTRIBUTION WIDTH 13.4 % (11.5-14.0); WHITE BLOOD COUNT 5.3 10^3/uL (4.0-10.5)
[2019-02-12 11:43] LABS: ANION GAP 10 (5-19); BLOOD UREA NITROGEN 11 mg/dL (7-20); CALCIUM 9.5 mg/dL (8.4-10.2); CARBON DIOXIDE 28 mmol/L (22-30); CHLORIDE 104 mmol/L (98-107); GLUCOSE 120 mg/dL (75-110); POTASSIUM 3.9 mmol/L (3.6-5.0)
[~2019-02-19 08:35] MED LIST changes: -EPINEPHRINE INJ 1 MG/10 ML DISP.SYRIN ONE; -FLUMAZENIL INJ 0.5 MG/5 ML VIAL ONE; -GLUCAGON,HUMAN RECOMB 1 MG INJ ONE; -GLYCOPYRROLATE INJ 0.4 MG/2 ML VIAL ONE; +LACTATED RINGERS 1000 ML IV PRN; +LIDOCAINE 0.5% INJ-PF (5 MG/ML) 50 ML SDV SUBCUT PRN; +METRONIDAZOLE 500 MG/NS RTU 500 MG/100 ML RTUPB IV ONE; +METRONIDAZOLE 500 MG/NS RTU 500 MG/100 ML RTUPB IV PRN; -NALOXONE HCL INJ/PF 0.4 MG/1 ML SDV ONE
[2019-02-19] MEDS ORDERED: SUCCINYLCHOLINE CHLORIDE INJ 200 MG/10 ML VIAL ONE (09:37)
[2019-02-19] MEDS ORDERED: ONDANSETRON HCL INJ/PF 4 MG/2 ML SDV ONE (09:38)
[2019-02-19] MEDS ORDERED: FENTANYL CITRATE INJ/PF 100 MCG/2 ML AMPUL ONE ×2 (09:38→11:14)
[2019-02-19] MEDS ORDERED: MIDAZOLAM 2 MG/2 ML INJ ONE (09:38)
[2019-02-19] MEDS ORDERED: DEXAMETHASONE SOD PHOSPHATE INJ 4 MG/1 ML VIAL ONE (09:38)
[2019-02-19] MEDS ORDERED: PROPOFOL INJ 200 MG/20 ML VIAL IV ONE (09:38)
[2019-02-19] MEDS ORDERED: SCOPOLAMINE HYDROBROMIDE 1.5 MG PATCH.TD72 TD PRN (10:13)
[2019-02-19] MEDS ORDERED: SCOPOLAMINE HYDROBROMIDE 1.5 MG PATCH.TD72 ONE (10:15)
[2019-02-19] MEDS ORDERED: BUPIVACAINE HCL 0.25 % INJ/PF (2.5 MG/1 ML) 30 ML VIAL ONE (11:19)
[2019-02-19] MEDS ORDERED: BUPIVACAINE INJ/PF LIPOSOME/PF 266 MG/20 ML SDV ONE (11:19)
[2019-02-19] MEDS ORDERED: PROMETHAZINE HCL INJ 25 MG/1 ML VIAL ONE (11:24)
[2019-02-19] MEDS ORDERED: FENTANYL CITRATE INJ/PF 100 MCG/2 ML AMPUL IV PRN ×3 (11:52)
[2019-02-19] MEDS ORDERED: MORPHINE SULFATE 10 MG/ML INJ IV PRN (11:52)
[2019-02-19] MEDS ORDERED: DIPHENHYDRAMINE HCL 50 MG/ML VIAL IV PRN (11:52)
[2019-02-19] MEDS ORDERED: ONDANSETRON HCL INJ/PF 4 MG/2 ML SDV IV PRN (11:52)
[2019-02-19] MEDS ORDERED: PROMETHAZINE HCL INJ 25 MG/1 ML VIAL IV PRN ×2 (11:52)
[2019-02-19] MEDS ORDERED: OXYCODONE-ACETAMINOPHEN 5-325 MG TABLET PO PRN ×2 (11:52)
[2019-02-19] MEDS ORDERED: MEPERIDINE HCL/PF INJ 25 MG/1 ML DISP.SYRIN IV PRN (11:52)
[2019-02-19] MEDS ORDERED: BUPIVACAINE HCL 0.25 % INJ/PF (2.5 MG/1 ML) 30 ML VIAL INJ ONE (11:57)
--- NOTE | 2019-02-19 12:25 | Discharge Summary ---
Discharge Summary (SDC) - Discharge Final Diagnosis: Anal canal polyp; external hemorrhoid Date of Surgery: 02/19/19 Condition: Good Treatment or Instructions: Resume preoperative medications, diet, activity; may take Tylenol Motrin as needed pain. Prescription for Toradol provided. Referrals: AG JOHNSON DO [Primary Care Provider] - Discharge Diet: As Tolerated Discharge Activity: Activity As Tolerated Home Care Assistance: None Needed Report the Following to Your Physician Immediately: Shortness of Breath, Increase in Pain, Fever over 101 Degrees
--- NOTE | 2019-02-19 12:31 | Operative Report ---
Operative Report DATE OF SURGERY: 02/19/19 PREOPERATIVE DIAGNOSIS: 1. External hemorrhoid. 2. Anal canal lesion POSTOPERATIVE DIAGNOSIS: Same OPERATION: 1. Examination under anesthesia. 2. Anal polypectomy. 3. External anterior hemorrhoidectomy SURGEON: HARRIETT SUNSHINE ANESTHESIA: GA TISSUE REMOVED OR ALTERED: Anal canal polyp and hemorrhoid COMPLICATIONS: None ESTIMATED BLOOD LOSS: 15 cc INTRAOPERATIVE FINDINGS: See below PROCEDURE: Patient was taken from the main holding area to the operating room where general anesthesia was induced with the patient on the gurney. She was then placed in the prone jackknife position on the operating bed. Arms were evaded and secured. The buttocks was exposed, taped widely with benzoin and silk tape. Buttocks and external anal opening were prepped and draped with Betadine Surgical plan surgical timeout were conducted. The perianal tissue was anesthetized with quarter percent Marcaine. Approximately 15 cc was used. I dilated up the anal canal to admit to index fingers. I then inserted the large bullet anoscope and examined the anal rectal canal in a circumferential fashion. There was a small skin tag in the right lateral position. There was evidence of external hemorrhoidal tissue, with a dominant hemorrhoid in the anterior position. At the dentate line was a 1+ centimeters somewhat frond-like pedunculated lesion consistent with polyp seen preoperatively. Several stool balls were removed manually from anal canal. With the bullet anoscope in position, 4-0 chromic suture was placed seminal to the anal canal polyp. Using a #10 blade, a small narrow ellipse of mucosa, encompassing the polyp, was moved with an excision approximately 1 cm x 5 cm. Using Metzenbaum scissors, the underlying hemorrhoidal cushion was removed as well. This was a fragmented section. All components of tissue were sent in one container to pathology for permanent analysis labeled anal canal polyp and hemorrhoid. We closed the mucosal defect with a running, locking 4-0 chromic suture previously placed. The knot was secured. Hemostasis was achieved at one point bleeding site with a [id number] 4-0 chromic suture. We checked for bleeding and and any other problems and there were none. Sponge and needle counts are correct. We felt the operation was complete. An additional 15 cc quarter percent Marcaine was injected into the perianal tissues. A Gelfoam plug was rolled, placed in the anal canal. The patient tolerated the procedure well, was rotated in supine position, extubated, and taken to recovery in stable condition.
[2019-02-19 14:21] VITALS: BP 132/80
== END 2019-02-19 14:05 | disposition home or self-care (01) ==
LOC: OROUT 08:35
PROVIDERS: ATTEND Surgery
DX: K62.0 Anal polyp (principal); K44.9 Diaphragmatic hernia without obstruction or gangrene; Z86.010 Personal history of colon polyps; J45.909 Unspecified asthma, uncomplicated; I10 Essential (primary) hypertension; M79.7 Fibromyalgia; E78.00 Pure hypercholesterolemia, unspecified; K59.09 Other constipation; Z87.891 Personal history of nicotine dependence; Z79.82 Long term (current) use of aspirin; Z79.899 Other long term (current) drug therapy
CPT/HCPCS: 93005; 36415 ×2; 82962; 84132; 85027; 80048; 88305 ×2; 93010; 46615; 46999; J2250; J1100; J3010; J3490; J2550; J0330; J2405; J2704; 902; C9290